=== PATIENT | female | born 1990 | race Hispanic/Latino ===

== ENCOUNTER 2017-09-03 12:17 | Emergency (ER) | payer OTHER ==
[~2017-09-03] VITALS: Ht 165.1 cm; Wt 83.9 kg
--- OUTSIDE RECORDS SUMMARY | 2017-09-03 12:19 | XMS REPORT | Clinical Summary ---
Author Author [facility] Organization [facility] Address Unknown Phone Unavailable Care Team Providers Care Landscape Crew Leader Name Role Phone Asked, Pcp PCP Unavailable Allergies No Known Allergies Current Medications Prescription Sig. Disp. Refills Start End Date Status Date Take 1 tablet by mouth Active vit,[id number] 29 daily. mg iron- 1 mg tablet per tablet acetaminophen-codeine Take 1 tablet by mouth 30 tablet 0 12/16/19 (TYLENOL WITH CODEINE #3) every 6 (six) hours as 17 17 300-30 mg per tablet needed for moderate pain for up to 13 days. Active Problems Problem Noted Date 12/14/2016 Currently Estimated Date of Delivery Comments Yes 12/23/2016 Encounters Date Type Specialty Care Team Description 12/14/2016 [facility] Obstetrics and Gynecology Alf Noble MD - Encounter 12/15/2016 after 09/02/2016 Immunizations Name Dates Previously Given Next Due Tdap 12/15/2016 Social History Tobacco Use Types Packs/Day Years Used Date Never Assessed Currently Estimated Date of Delivery Comments Yes 12/23/2016 Sex Assigned at Date Recorded Not on file Last Filed Vital Signs Vital Sign Reading Time Taken Blood Pressure 110/69 12/15/2016 8:30 AM CDT Pulse 81 12/15/2016 8:30 AM CDT Temperature 36.7 C (98.1 F) 12/15/2016 8:30 AM CDT Respiratory Rate 16 12/15/2016 8:30 AM CDT Oxygen Saturation - - Inhaled Oxygen - - Concentration Weight 83.5 kg (184 lb) 12/14/2016 11:27 AM CDT Height 165.1 cm (5' 5") 12/14/2016 11:27 AM CDT Body Mass Index 30.62 12/14/2016 11:27 AM CDT Plan of Treatment Not on file Results * CBC with platelet and differential (12/15/2016 5:30 AM) Only the most recent of 2 results within the time period is included. Component Value Ref Range WBC 11.92 (H) 4.50 - 11.00 k/uL RBC 3.97 (L) 4.20 - 5.50 m/uL HGB 12.3 12.0 - 16.0 g/dL HCT 35.8 (L) 37.0 - 47.0 % MCV 90.2 82.0 - 100.0 fL MCH 31.0 27.0 - 34.0 pg MCHC 34.4 31.0 - 37.0 g/dL RDW - SD 41.7 37.0 - 55.0 fL MPV 11.3 8.8 - 13.2 fL Platelet count 144 (L) 150 - 400 k/uL Nucleated RBC 0.00 /100 WBC Neutrophils 70.4 (H) 39.0 - 69.0 % Lymphocytes 20.3 (L) 25.0 - 45.0 % Monocytes 8.1 0.0 - 10.0 % Eosinophils 0.3 0.0 - 5.0 % Basophils 0.3 0.0 - 1.0 % Immature granulocytes 0.6Comment: "Immature granulocytes" 0.0 - 1.0 % (promyelocytes, myelocytes, metamyelocytes) Specimen Performing Laboratory Blood [facility]PART[facility] OF PATHOLOGY AND GENOMIC MEDICINE [address] [place] [address] * Syphilis treponemal IgG (12/14/2016 12:00 PM) Component Value Ref Range Syphilis treponemal IgG Non-reactiveComment: Non-reactive: No serological Non-reactive evidence of Syphilis infection Specimen Performing Laboratory Serum [facility] DEPARTMENT OF PATHOLOGY AND GENOMIC MEDICINE [address] [place] [address] * HIV 1, 2 antibody (12/14/2016 12:00 PM) Component Value Ref Range HIV 1, 2 antibody Nonreactive Non-reactive Comment: Starting from September 06 2015, 4th generation HIV screening and confirmation assays are in use at [facility], consistent with the CDC-recommended algorithm. The screening test detects antibodies to HIV-1, HIV-2 and the p24 antigen. Positive screening results will be automatically reflexed to a HIV-1/HIV-2 differentiation assay. Indeterminant HIV-1 results will be further automatically reflexed to a nucleic acid test for detection of acute infection. Western blot will no longer be performed as a confirmation test. For a quick reference guide on the testing algorithm, please refer to: http://stacks.cdc.gov/view/cdc/47163. Specimen Performing Laboratory Blood [facility]PART[facility] OF PATHOLOGY AND GENOMIC [facility] [address] [place] [address] * Hepatitis B surface antigen (12/14/2016 12:00 PM) Component Value Ref Range Hepatitis B surface Ag Nonreactive Non-reactive Specimen Performing Laboratory Blood [facility] DEPARTMENT OF PATHOLOGY AND [facility] [address] [place] [address] * Type and screen (12/14/2016 12:00 PM) Component Value Ref Range ABO grouping O Rh type POS Antibody screen NEG Specimen Performing Laboratory Blood [facility] DEPARTMENT OF PATHOLOGY AND [facility] [address] [place] [address] after 09/02/2016 Insurance Payer Benefit Subscriber ID Type Phone Address Plan / Group AET[employer] AETNA [place] xxxxxxxxxx Commercial [employer] AETNA xxxxxxxxxx HMO HMO,POS,EP O, MC/EC Home: [address] [place] [id number]
[2017-09-03] MEDS ORDERED: MORPHINE SULFATE 4 MG/ML SYR IV STA (13:43)
[2017-09-03 14:02] LABS: BASOPHILS % 0.3 % (0.0-1.0); EOSINOPHILS % 0.1 % (0.0-6.0); HEMATOCRIT 44.8 % (34.2-44.1); HEMOGLOBIN 15.4 g/dL (12.0-16.0); LYMPHOCYTES # (AUTO) 0.6 (1.0-3.2); LYMPHOCYTES % 3.9 % (18.0-39.1); MEAN CORPUSCULAR HEMOGLOBIN 30.6 pg (28-32); MEAN CORPUSCULAR HGB CONC 34.4 g/dL (31-35); MEAN CORPUSCULAR VOLUME 88.9 fL (81-99); MONOCYTES # (AUTO) 0.6 (0.2-0.8); MONOCYTES % 4.2 % (4.4-11.3); NEUTROPHILS # (AUTO) 13.5 (2.1-6.9); NEUTROPHILS % 91.2 % (38.7-80.0); PLATELET COUNT 234 x10e3/uL (140-360); RED BLOOD COUNT 5.04 x10e6/uL (3.6-5.1)
[2017-09-03 14:04] LABS: BILIRUBIN,URINE NEGATIVE (NEGATIVE); COLOR,URINE YELLOW (YELLOW); KETONES,URINE TRACE (NEGATIVE); LEUKOCYTE ESTERASE ,URINE NEGATIVE (NEGATIVE); NITRITE,URINE NEGATIVE (NEGATIVE); PROTEIN,URINE DIPSTICK NEGATIVE (NEGATIVE); URINE UROBILINOGEN 0.2 mg/dL (0.2 - 1)
[2017-09-03] MEDS: SODIUM CHLORIDE 0.9% 1000ML 1,000 ML IV STA (14:04)
[2017-09-03] MEDS: ONDANSETRON HCL INJ 2 MG/ML VIAL IV STA (14:04)
[2017-09-03 14:05] LABS: CLARITY,URINE SL CLOUDY (CLEAR)
[2017-09-03 14:23] LABS: ALANINE AMINOTRANSFERASE 18 IU/L (0-55); ALBUMIN 4.4 g/dL (3.5-5.0); ALBUMIN/GLOBULIN RATIO 1.2 (0.8-2.0); ALKALINE PHOSPHATASE 75 IU/L (40-150); AMYLASE 94 U/L (25-125); ANION GAP 12.7 mmol/L (8-16); BLOOD UREA NITROGEN 12 mg/dL (7-26); BUN/CREATININE RATIO 16 (6-25); CALCIUM 9.6 mg/dL (8.4-10.2); CARBON DIOXIDE 26 mmol/L (22-29); CHLORIDE 106 mmol/L (98-107); CREATININE, SERUM 0.76 mg/dL (0.57-1.11); EST GLOMERULAR FILTRATION RATE > 60 ML/MIN (60-); GLUCOSE 110 mg/dL (74-118); LIPASE 12 U/L (8-78); POTASSIUM 4.7 mmol/L (3.5-5.1); SODIUM 140 mmol/L (136-145)
[2017-09-03] MEDS ORDERED: DIATRIZOATE MEGL/DIATRIZOA SOD 30 ML BTL PO ONE (14:51)
[2017-09-03] MEDS: KETOROLAC TROMETHAMINE 30 MG/ML VIAL IV STA (15:20)
--- NOTE | 2017-09-03 16:48 | Diagnostic Imaging Report ---
PROCEDURE: CT ABDOMEN AND PELVIS WITH CONTRAST TECHNIQUE: The abdomen and pelvis were scanned utilizing a multidetector helical scanner from the diaphragm to the lesser trochanter after the IV administration of 100 cc of Isovue 370 and the oral administration of dilute Gastrografin. Coronal and sagittal multiplanar reformations were obtained. COMPARISON: None. INDICATIONS: Lower abdominal pain, nausea, vomiting, and diarrhea FINDINGS: LOWER THORAX: Unremarkable HEPATOBILIARY: No focal hepatic lesions. No biliary ductal dilatation. Gallbladder is unremarkable. SPLEEN: No splenomegaly. PANCREAS: No focal masses or ductal dilatation. ADRENALS: No adrenal nodules. KIDNEYS/URETERS: No hydronephrosis, stones, or solid mass lesions. PELVIC ORGANS/BLADDER: Bladder is unremarkable. Moderate amount of fluid in the endometrial cavity. No adnexal masses. PERITONEUM / RETROPERITONEUM: No free air or fluid. LYMPH NODES: No lymphadenopathy. VESSELS: Celiac trunk, superior and inferior mesenteric, and bilateral renal arteries are patent. Portal, superior mesenteric, and splenic veins are patent. GI TRACT: No bowel dilation or evidence of obstruction. Most of the distal ascending, transverse, and descending and sigmoid colon are decompressed. No pericolonic inflammatory changes. The appendix is well identified and normally caliber. No periappendiceal inflammatory changes. No diverticulosis. BONES AND SOFT TISSUES: No aggressive lytic lesion. IMPRESSION: 1. no acute abdominopelvic abnormalities. Specifically, no bowel dilation or evidence of obstruction. No CT evidence of appendicitis. No diverticulosis. 2. Moderate amount of fluid in the endometrial cavity. Correlate with menstrual history. Chuck Salcedo M.D. Dictated by: Chuck Salcedo M.D. on 09/03/2017 at 16:49 Electronically approved by: Chuck Salcedo M.D. on 09/03/2017 at 16:49
[2017-09-03 19:01] VITALS: BP 112/79
[2017-09-03] MEDS ORDERED: SODIUM CHLORIDE 0.9% 50ML 50 ML ONE (22:27)
[2017-09-03] MEDS ORDERED: IOPAMIDOL 370 MG/ML 200 ML INFUS..BTL INJ ONE (22:27)
== END 2017-09-03 17:30 | disposition home or self-care (01) ==
LOC: ER 12:17
DX: K29.00 Acute gastritis without bleeding (principal)
CPT/HCPCS: 36415; 74177; 80053; 81001; 82150; 83690; 84702; 85025; 99284; J1885; J2405; J7030; Q9967